=== PATIENT | female | born 1950 | race Caucasian/White ===

== ENCOUNTER 2023-04-11 01:42 | Emergency (ER) | payer MEDICARE ==
[~2023-04-11] VITALS: Ht 165.1 cm; Wt 124.7 kg
[2023-04-11 01:44] VITALS: BP 155/117; PULSE 73; RESP 16; O2SAT 98
[2023-04-11 02:02] VITALS: O2SAT 98
[2023-04-11] MEDS ORDERED: LIDOCAINE 5% 1 EA PATCH TP ONE (02:50)
[2023-04-11] MEDS ORDERED: CYCLOBENZAPRINE 10 MG TAB PO ONE (02:50)
[2023-04-11] MEDS ORDERED: MORPHINE SULFATE 4 MG/ML SYR IM ONE ×2 (02:50→04:40)
[2023-04-11] MEDS ORDERED: CYCL-711 PO (04:04)
[2023-04-11] MEDS ORDERED: GABA100C PO (04:04)
[2023-04-11] MEDS ORDERED: DICL20GE TP (04:04)
[2023-04-11 05:17] VITALS: BP 125/63; PULSE 67; RESP 14; TEMP 98; O2SAT 100
== END 2023-04-11 05:18 | disposition home or self-care (01) ==
LOC: MED 01:42
DX: M54.31 Sciatica, right side (principal); I10 Essential (primary) hypertension; Z98.890 Other specified postprocedural states; Z79.899 Other long term (current) drug therapy
CPT/HCPCS: 96372; 99284; J2270